=== PATIENT | female | born 1975 | race African-American/Black ===

== ENCOUNTER 2018-12-17 04:17 | Emergency (ER) | payer SELFPAY ==
[~2018-12-17] VITALS: Ht 162.6 cm; Wt 79.8 kg
--- NOTE | 2018-12-17 04:51 | NUR ---
ED Nurse Note: PT walked into ER stating she thinks she has UTI, pt denies her urin has a foul smell. symptoms started happening 40 min prior to traig. pt admits to pain during urination, and frequency. Pt is AO x 4times, VSS, on room air no distress. MARIA TERESA seen Pt at bedside.
[2018-12-17 04:52] VITALS: BP 128/78
[2018-12-17 05:16] LABS: BILIRUBIN, URINE NEGATIVE (NEGATIVE); COLOR,URINE PALE YELLOW; GLUCOSE, URINE (UA) NEGATIVE (NEGATIVE); KETONES,URINE NEGATIVE (NEGATIVE); LEUKOCYTE ESTERASE ,URINE 3+ (NEGATIVE); NITRITE,URINE NEGATIVE (NEGATIVE); PH,URINE 7 (4.5-8.0); PROTEIN,URINE NEGATIVE (NEGATIVE); UROBILINOGEN,URINE NORMAL MG/DL (0.0-1.0)
[2018-12-17 05:42] LABS: APPEARANCE,URINE SLIGHTLY CLOUDY
[2018-12-17] MEDS ORDERED: IBUPROFEN600 MG ORAL (05:50)
[2018-12-17] MEDS ORDERED: ZOFRAN4 MG ORAL (05:50)
[2018-12-17] MEDS ORDERED: CEPHALEXIN500 MG ORAL (05:50)
[2018-12-17 06:10] VITALS: BP 134/78
--- NOTE | 2018-12-17 06:10 | NUR ---
ED Nurse Note: Pt cleared DC by [facility]MReno. Pt is AO x 4times, VSS, on room air no distress. Belongings given to Pt. DC and meds instructions given to Pt, Pt understood well. ID bend removed. Pt walkled out unit with steady gait.
--- NOTE | 2018-12-23 14:54 | Emergency Room Report ---
History of Present Illness General Chief Complaint: Female Urogenital Problems Source: Patient Present Illness HPI Patient is a 43-year-old female who presented after increased difficulty with urination. Patient gradual onset of symptoms. She reports having some increased dysuria. She denies any vomiting. She had onset of symptoms several days ago but had not taken any new medications. She denies any fever or hematuria. She denies any severe flank pain. Allergies: Coded Allergies: No Known Allergies (Unverified , 12/17/18) Patient History Past Medical History: see triage record Last Menstrual Period: 3 weeks ago Now: No : 2 Para: 1 Reviewed Nursing Documentation: PMH: Agreed; PSxH: Agreed Nursing Documentation-PMH Past Medical History: No Stated History Review of Systems All Other Systems: negative except mentioned in HPI Physical Exam General Appearance: well appearing, no apparent distress, alert, GCS 15 Head: normocephalic, atraumatic ENT: hearing grossly normal, normal voice Neck: full range of motion, supple Respiratory: no respiratory distress, speaking full sentences Cardiovascular #1: normal inspection, normal peripheral pulses, regular rate, rhythm Gastrointestinal: normal inspection, non tender Genitourinary: no CVA tenderness Musculoskeletal: normal inspection, back normal, digits/nails normal, no calf tenderness Neurologic: normal inspection, alert, oriented x3, responsive, fluxer III-XII nml as tested, normal gait Psychiatric: normal inspection, mood/affect normal Skin: no rash Medical Decision Making Diagnostic Impression: Primary Impression: Urinary tract infection ER Course Presented for dysuria. Differential diagnosis included was not limited to appendicitis, urinary tract infection, pelvic inflammatory disease, urethritis, herpes among others. Urinalysis showed evidence of urinary infection. Patient was given prescription for oral antibiotics. She was given prescription for pain medication she is advised to return if she began having worsening difficulty breathing high fever persistent vomiting or other concerns. Labs Test 12/17/18 04:50 Urine Color Pale yellow Urine Appearance Slightly cloudy Urine pH 7 (4.5-8.0) Urine Specific [place] 1.005 (1.005-1.035) Urine Protein Negative (NEGATIVE) Urine Glucose (UA) Negative (NEGATIVE) Urine Ketones Negative (NEGATIVE) Urine Blood 4+ (NEGATIVE) Urine Nitrite Negative (NEGATIVE) Urine Bilirubin Negative (NEGATIVE) Urine Urobilinogen Normal MG/DL (0.0-1.0) Urine Leukocyte Esterase 3+ (NEGATIVE) Urine RBC 5-10 /HPF (0 - 2) Urine WBC Tntc /HPF (0 - 2) Urine Squamous Epithelial Cells Few /LPF (NONE/OCC) Urine Bacteria Moderate /HPF (NONE) Urine HCG, Qualitative Negative (NEGATIVE) Status: improved Disposition: HOME, SELF-CARE Condition: Stable Scripts Ibuprofen* (MOTRIN*) 600 Mg Tablet 600 MG ORAL Q8H PRN for For Pain, #30 TAB 0 Refills Prov: Prieto Barrera MD 12/17/18 Ondansetron (Zofran) 4 Mg Tablet 4 MG ORAL Q6H PRN for Nausea & Vomiting, #30 TAB 0 Refills Prov: Preito Barrera MD 12/17/18 Cephalexin* (KEFLEX*) 500 Mg Capsule 500 MG ORAL EVERY 6 HOURS, #28 CAP Prov: Prieto Barrera MD 12/17/18 Patient Instructions: Urinary Tract Infection Prieto Barrera MD Dec 23, 2018 14:54
== END 2018-12-17 06:10 | disposition home or self-care (01) ==
LOC: EDBD 04:48 → EMR 04:48
DX: N39.0 Urinary tract infection, site not specified (principal)
CPT/HCPCS: 81003; 81025; 87086; 87181; 96372; 99283; J0690